=== PATIENT | female | born 1985 | race Caucasian/White ===

== ENCOUNTER 2018-02-06 19:06 | Emergency (ER) | payer MEDICAID ==
[~2018-02-06 19:06] MED LIST: AMOX500T PO; DICY1TAB26 PO; KCL10C PO; LOMO PO; LORTA10 PO; Z.0.NO CURRENT MEDS; ZOFR4TAB3 SL
[2018-02-06] MEDS ORDERED: SILVER NITR/POTASSIUM NITRATE APPLICATORS TOPICAL STA (19:56)
--- NOTE | 2018-02-06 20:05 | PD ---
HPI Chief Complaint vaginal bleeding Date Seen: Feb 06, 2018 Time Seen: 19:59 Travel History International Travel<30 Days: No Contact w/Intl Traveler<30Days: No Known Affected Area: No History of Present Illness HPI 32-year-old at 16 weeks gestation comes in complaining of bright red vaginal bleeding for approximately 1 hour. Patient denies abdominal pain, contractions, or pelvic pain. During this she has had a chronic hypertension and was placed on labetalol 100 mg twice daily. She also acquired HPV several years ago and had a colposcopy 2 weeks ago with directed biopsies that caused her to bleed for almost a week. Patient denies coitus but she has been placing MetroGel intravaginally every night for the past 4 nights due to bacterial vaginosis Weeks Gestation: 16 Para: 4 : 6 Miscarriage: 1 History Past Medical History Narrative Medical Chronic hypertension diagnosis HPV with colposcopy this Obstetric History Obstetric History Spontaneous vaginal delivery 4, 3 deliveries full-term, one delivery at 34 weeks Past Surgical History Surgical History: No Previous Surgery Family History Family History: Negative Social History Alcohol Use: No Tobacco Use: No Substance Abuse: No Allergies-Medications (Allergen,Severity, Reaction): Coded Allergies: ibuprofen (Unverified Adverse Reaction, Mild, 07/07/17) PT HAS KIDNEY DISEASE Uncoded Allergies: COUGH MEDS (Allergy, Severe, 08/24/03) Home Meds Active Scripts Diphenoxylate/Atropine (Lomotil) 1 Tab Tab, 1 TAB PO QID for DIARRHEA, #12 TAB 1 TAB, 5 TIMES A DAY NEEDED WITH EACH EPISODE OF DIARRHEA. DO NOT EXCEED 5 TABLETS/DAY. Prov:Tree Hull MD 01/05/15 Dicyclomine Hcl (Bentyl) 20 Mg Tab, 20 MG PO Q8 for PAIN, #21 TAB Prov:Tree Hull MD 01/05/15 Ondansetron (Zofran ODT) 4 Mg Tab, 4 MG SL Q6H Y for NAUSEA, #6 TAB FOR NAUSEA/VOMITING Prov:Tree Hull MD 01/05/15 Potassium Chloride (KCl 10 Meq Cap) 10 Meq Capcr, 10 MEQ PO DAILY, #5 CAP Prov:Tree Hull MD 01/05/15 Hydrocodone/Acetaminophen 10 mg/325 mg (Hydrocodone/Acetaminophen 10 mg/325 mg) 10 Mg/325 Mg Tab, 0.5-1 TAB PO Q6 for pain, #20 Prov:MANAV MILLER M.D. 08/06/13 Amoxicillin (Amoxicillin) 500 Mg Cap, 1 TAB PO TID for 10 Days Prov:MANAV MILLER M.D. 08/06/13 Reported Medications Miscellaneous (No Current Meds) Misc 08/05/13 Review of Systems Except as stated in HPI: all other systems reviewed are Neg Physical Exam Narrative GENERAL: Well-nourished, well-developed patient. SKIN: Warm and dry. HEAD: Normocephalic and atraumatic. EYES: No scleral icterus. No injection or drainage. ENT: No nasal drainage noted. Mucous membranes pink. Airway patent. NECK: Supple, trachea midline. No JVD. CARDIOVASCULAR: Regular rate and rhythm without murmurs, gallops, or rubs. RESPIRATORY: Breath sounds equal bilaterally. No accessory muscle use. ABDOMEN/GI: Abdomen soft, non-tender, bowel sounds present, no rebound, no guarding Gravid to [-16] weeks size Fundal Height: [-] GENITOURINARY: External Genitalia: intact and normal in appearance Previous cervical biopsy site noted at 12:00 with active bleeding. No bleeding per cervix, clumpy discharge which resembles blood mixed with MetroGel removed from vagina. Monsel solution and silver nitrate was placed on cervical biopsy site with good hemostasis and no further bleeding Cervix: [-] Closed Dilatation: [-] Effacement: [-] Station: [-] Presentation: [-] Membranes: [intact or ruptured] Uterine Contractions: [-] FHT's: By Doppler 145 Category: [-] Baseline: [-] Reactive: [-] Variability: [-] Decels: [-] EXTREMITIES: No cyanosis or edema. BACK: Nontender without obvious deformity. No CVA tenderness. NEUROLOGICAL: Awake and alert. Motor and sensory grossly within normal limits. Five out of 5 muscle strength in all muscle groups. Normal speech. Data Data Vital Signs Reviewed: Yes MDM Medical Record Reviewed: Yes Narrative Course / MDM at 16 weeks gestation with bright red vaginal bleeding during due to trauma at the site of her previous cervical biopsy performed 2 and half weeks ago. Trauma most likely due to placement of MetroGel Plan Hemostasis was achieved using topical preparations Patient will decrease her activities for the next week, nothing per vagina for the next 2 weeks Patient has appointment on Thursday which she will keep and obtain her providers recommendations at that time Diagnosis Diagnosis: Primary Impression: 16 weeks gestation of Additional Impressions: Vaginal bleeding during , antepartum HPV (human papilloma virus) infection Cervical dysplasia affecting in second trimester Chronic hypertension in obstetric context in second trimester Disposition: 01 DISCHARGE HOME Sarah Santiago MD Feb 06, 2018 20:05
== END 2018-02-06 20:40 | disposition home or self-care (01) ==
LOC: HOBED 19:06
DX: O46.92 Antepartum hemorrhage, unspecified, second trimester (principal); O98.312 Other infections with a predominantly sexual mode of transmission complicating pregnancy, second trimester; A63.0 Anogenital (venereal) warts; O99.89 Other specified diseases and conditions complicating pregnancy, childbirth and the puerperium; N87.9 Dysplasia of cervix uteri, unspecified; O16.2 Unspecified maternal hypertension, second trimester; Z3A.16 16 weeks gestation of pregnancy; Z88.6 Allergy status to analgesic agent
CPT/HCPCS: 99283

== ENCOUNTER → 2018-02-17 | Outpatient (CLI) | payer MEDICAID ==
[~2018-02-17] MED LIST changes: +LABE100T2 PO; +PREN1CHW7 PO
== END ==
LOC: HPND 11:47
PROVIDERS: ATTEND Obstetrics & Gynecology
DX: O28.5 Abnormal chromosomal and genetic finding on antenatal screening of mother (principal); O34.32 Maternal care for cervical incompetence, second trimester; R87.810 Cervical high risk human papillomavirus (HPV) DNA test positive; R87.613 High grade squamous intraepithelial lesion on cytologic smear of cervix (HGSIL)
CPT/HCPCS: 76805; 76817

== ENCOUNTER → 2018-02-23 | Outpatient (CLI) | payer MEDICAID ==
[~2018-02-23] MED LIST changes: +NIFE30TA8 PO
--- NOTE | 2018-02-24 13:18 | EKG ---
Date Performed: 02/23/2018 Time Performed: 13:34:42 PTAGE: 32 years EKG: Sinus rhythm NORMAL ECG PREVIOUS TRACING : 08/05/2013 21.50 DOCTOR: Tylor Cano Interpretating Date/Time 02/24/2018 13:17:05
== END ==
LOC: CPRE 13:08
PROVIDERS: ATTEND Obstetrics & Gynecology
DX: Z01.810 Encounter for preprocedural cardiovascular examination (principal); R87.613 High grade squamous intraepithelial lesion on cytologic smear of cervix (HGSIL)
CPT/HCPCS: 93005

== ENCOUNTER 2018-02-26 06:33 | Observation (INO) | payer MEDICAID ==
--- NOTE | 2018-02-23 14:14 | MH ---
cc: Marivel Kenyon MD DATE OF ADMISSION: 02/26/2018 SCHEDULED PROCEDURE: Dominguez cerclage and cold knife cone biopsy at 19-1/2 weeks estimated gestational age. 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 Secondary diagnosis of IgA nephropathy with preconceptual hypertension. HISTORY OF PRESENT CONDITION: The patient is a single white female, 5, para 4-0-0-4, with LMP questionably in September, who came to us on 01/04 at 12 weeks. Her booking Pap smear showed a high-grade squamous intraepithelial lesion. Cervical biopsy was done, which confirmed MIRELA 3 involving endocervical glands. She was made aware of this at 15 weeks and given the option of termination, early delivery in the early third trimester or observation. We also discussed the possibility of a Dominguez cerclage placed, the cone performed or the cerclage tied off, although this is not well documented in the literature as an option. The patient discussed this over time with her significant other and she also was evaluated by perinatology who felt that this was the procedure of choice. Specifically, she saw Dr. Yusuf on 02/17, and he agreed that she should have a cone biopsy with a cerclage in place to tie immediately afterward. I have appraised her that this is not a common procedure, that there is a very significant raised risk of loss with contractions and bleeding requiring removal of the cerclage. There is also an increased risk of labor and delivery when the is a viable, which it is not right now. This may not impact her IgA nephropathy and her hypertension, but these are independent risk factors for her , including obesity, GERD. She voices understanding of these issues and desires to proceed. Her previous pregnancies were delivered from 2007 through [address] Beckford and Olga at [facility]. She states she has been told she has abnormal Pap smears and that at her last visit with Dr. Espinoza, he told her it was time to get her uterus out, but she did not specifically know why or follow up. Attempts to obtain these Pap smears from Dr. Espinoza's office had not been successful, but we are continuing to request them. She has had a kidney biopsy in 2000. She delivered all her babies vaginally at term, except for her first one, which was PROM at 35 weeks. She is AB negative. Her hemoglobin was 11.7. She is immune to Tamazight measles and chickenpox. Her serology has been negative. TSH was 1.5. Drug screen was negative. Hepatitis was negative. Initial quad screen suggest an increased risk in Down syndrome, but this was incorrectly calculated and a recalculation with correct dates gave a normal number. PHYSICAL EXAMINATION: GENERAL: She is an obese, white female in no acute distress. VITAL SIGNS: Her weight is 226. Her blood pressure is 150/80 on labetalol 100 in the morning. LUNGS: Clear to auscultation and percussion. HEART: Rate and rhythm are regular. ABDOMEN: Obese with the fundus at the umbilicus. Perineum is estrogenized. Vault is mildly elevated. Cervix is multiparous and digitally feels to have significant length and closed. Uterus is consistent with dates. EXTREMITIES: Showed minimal edema, some varicosities. LABORATORY DATA: She has +4 protein at this time. A 24-hour urine was done a month ago, per her statement, but I have not obtained the results and we will repeat it this week. Ultrasound in the office today shows a cervical length of 3. 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 Opportunity is (1) to expectantly and do a cone biopsy after delivery, (2) do a termination of the and do a cold knife cone now, (3) do a cold knife cone and keep a cerclage in place to try and protect the now. All these have been described in detail and she wants to have a Dominguez cerclage placed without being tied, the cone biopsy done, tie off the Dominguez cerclage and follow up from there. She signed consents and has agreed to Thursday morning at 8:30. She will stay overnight for 23 hours. Marivel Kenyon MD PPC/SB , 01:31 PM , 02:13 PM
[~2018-02-26] VITALS: Ht 165.1 cm; Wt 101.9 kg
[~2018-02-26 06:33] MED LIST changes: -AMOX500T PO; -DICY1TAB26 PO; -KCL10C PO; -LOMO PO; -LORTA10 PO; -NIFE30TA8 PO; -Z.0.NO CURRENT MEDS; -ZOFR4TAB3 SL
[2018-02-26] MEDS: LACTATED RINGER'S 1000 ML IV PRN ×2 (07:15→11:00)
[2018-02-26] MEDS ORDERED: METOPROLOL TARTRATE 25 MG TAB PO PRN (07:30)
[2018-02-26] MEDS ORDERED: POVIDONE IODINE 5% (ANTISEPSIS KIT) 4 APPLICATIONS EACH NARE PRN (07:30)
[2018-02-26] MEDS ORDERED: SODIUM CHLORID 0.9% 500 ML IV PRN (07:30)
[2018-02-26] MEDS ORDERED: CHLORHEXIDINE GLUCONATE 2 % 1 PACK (2 CLOTHS) TOPICAL PRN (07:30)
[2018-02-26 07:41] LABS: AUTOMATED NEUTROPHIL # 6.3 TH/MM3 (1.8-7.7); BASOPHIL % 0.2 % (0.0-2.0); EOSINOPHIL # 0.1 TH/MM3 (0-0.4); HEMATOCRIT 33.5 % (35.0-46.0); HEMOGLOBIN 11.5 GM/DL (11.6-15.3); LYMPH % 17.3 % (9.0-44.0); LYMPHOCYTE # 1.5 TH/MM3 (1.0-4.8); MEAN CELL VOLUME 87.1 FL (80.0-100.0); MEAN CORPUSCULAR HEMOGLOBIN 29.8 PG (27.0-34.0); MEAN CORPUSCULAR HGB CONC 34.2 % (32.0-36.0); MEAN PLATELET VOLUME 6.8 FL (7.0-11.0); MONO % 5.9 % (0.0-8.0); MONOCYTE # 0.5 TH/MM3 (0-0.9); NEUT % 75.6 % (16.0-70.0); PLATELET COUNT 327 TH/MM3 (150-450); RED BLOOD COUNT 3.85 MIL/MM3 (4.00-5.30); RED CELL DISTRIBUTION WIDTH 14.1 % (11.6-17.2); WHITE BLOOD COUNT 8.4 TH/MM3 (4.0-11.0)
[2018-02-26 08:06] LABS: ALBUMIN 2.6 GM/DL (3.4-5.0); ALT (GPT) 20 U/L (10-53); AST (GOT) 19 U/L (15-37); BLOOD UREA NITROGEN 7 MG/DL (7-18); CALCIUM 8.6 MG/DL (8.5-10.1); CHLORIDE 106 MEQ/L (98-107); GLOMERULAR FILTRATION RATE 117 ML/MIN (>89); GLUCOSE,RANDOM 87 MG/DL (74-106); SODIUM (NA) 140 MEQ/L (136-145)
[2018-02-26 08:09] LABS: ALKALINE PHOSPHATASE 82 U/L (45-117); TOTAL BILIRUBIN ADULT 0.4 MG/DL (0.2-1.0); TOTAL PROTEIN 6.9 GM/DL (6.4-8.2)
[2018-02-26] MEDS ORDERED: BUPIVACAINE PF 0.75% DEX-WATER INJ 2 ML AMP ONE (08:31)
[2018-02-26] MEDS ORDERED: OXYTOCIN 10 UNIT/ML AMP ONE (08:37)
[2018-02-26] MEDS ORDERED: ESTROGENS CONJUGATED VAG CREA 15 APPL/30 GM TUBE ONE (08:37)
[2018-02-26 08:44] LABS: BILIRUBIN, URINE NEG (NEG); BLOOD, URINE NEG (NEG); GLUCOSE,URINE NEG (NEG); KETONE, URINE NEG (NEG); MUCUS URINE FEW /lpf (OCC); NITRITE,URINE NEG (NEG); SQUAMOUS EPITHELIAL CELL URINE 4 /hpf (0-5); URINE COLOR LIGHT-YELLOW (YELLW/STRAW); URINE LEUKOCYTE ESTERASE NEG (NEG)
[2018-02-26] MEDS ORDERED: MICROFIBRILLAR COLLAGEN HEMOSTAT 1 GM PKT ONE (09:56)
[2018-02-26 10:24] VITALS: TEMP 98.1
[2018-02-26] MEDS ORDERED: DO NOT ADM ANY ANTICOAGULANT DRUGS PRN (10:24)
--- NOTE | 2018-02-26 10:36 | HHI.DCPOC ---
Discharge Care Plan Report Symptoms to Your Doctor -Temperature above 100.5 degrees -Redness, of incision or excessive or foul smelling drainage -Unusual pain or calf pain -Increased vaginal bleeding -Painful or difficulty urinating -Feelings of extreme sadness or anxiety after 2 weeks Goals to Promote Your Health * To prevent worsening of your condition and complications * To maintain your health at the optimal level Directions to Meet Your Goals Take your medications as prescribed Follow your dietary instruction Follow activity as directed Ensure plenty of rest for recovery Drink fluids for hydration Keep your appointments as scheduled Take your immunizations and boosters as scheduled If your symptoms worsen call your PCP, if no PCP go to Urgent Care Center or Emergency Room Smoking is Dangerous to Your Health. Avoid second hand smoke Call the 24-hour crisis hotline for domestic abuse at Marivel Kenyon MD Feb 26, 2018 10:36
--- NOTE | 2018-02-26 10:39 | PD.OP ---
Operative Report Date of Surgery: Feb 26, 2018 Preoperative Diagnosis: CIS of cervix with glandular involvement 19 week IUP Postoperative Diagnosis: same Procedure: Cerclage with prolene and knot at 1 oclock LEEP and top hat Anesthesia: spinal Surgeon: Marivel Kenyon Student Support Services Director(s): ARIAN MS3 Resident Surgeon: Operation and Findings: Marivel Ruiz MD Feb 26, 2018 10:39
[2018-02-26 10:45] VITALS: BP 119/61; PULSE 90; RESP 18; O2SAT 100
--- NOTE | 2018-02-26 11:02 | MP ---
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 SECONDARY DIAGNOSIS: 19+-week intrauterine . POSTOPERATIVE DIAGNOSES: 1. 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 2. 19+-week intrauterine . 3. Pathology pending. PROCEDURE PERFORMED: Dominguez cerclage placement using a Prolene suture and a combination of cold knife cone and LEEP obtaining a cone with a stitch at 12 and a top hat with orientation not clear. SURGEON: MD Kostas FUR TINTER: MS Magno3 FINDINGS: Examination under spinal analgesia revealed a soft, but fairly long cervix. The lesion that has been confirmed both with cytology and histology in the office was not grossly visualized, but known to be on the transformation zone and entering into the endocervical canal. After stay sutures and traction sutures at 12 and 6, the cone biopsy was obtained. We started out with a knife, but bleeding suggested that we convert to using a small LEEP which was used to get the entirety of the cervical os in one pass with a stitch at 12, and then a very small narrow top hat with orientation unclear. Using cautery, Avitene and the traction sutures as hemostasis, only 50 mL to 75 mL were lost. The cerclage was placed with Prolene from 2-10, 10-8, 8-4 and 4-2, tied off gently with a long knot and long tails at 1 o'clock on the cervix. She had no discomfort during the procedure under her spinal and tolerated it well. heart tones were heard both before and after and she went to the recovery room stable. DESCRIPTION OF PROCEDURE: The patient was identified as Annette Yoon. In holding with her Ulises naik, we discussed that this is not a common procedure to do a cone biopsy and a cerclage at the same time. We have reviewed that she has a 20% risk of loss from this procedure due to uncontrollable contractions, infection or spontaneous rupture of membranes. This case had been discussed prior with both Gynecologic Oncology and Perinatology. She and her confirmed the desire to proceed. She was taken to the operating room where she was administered 2 grams of Ancef. She was prepped and draped in the usual sterile fashion in the dorsal lithotomy position. A timeout was performed with all in attendance. The cervix was stabilized with a single suture at 12 o'clock and then an additional suture at 6, both used to hold gentle traction and then at 3 o'clock and 9 o'clock a stay suture was placed to hopefully decrease blood flow to the cervix from the inferior branches of the uterine artery. At this point, a Dominguez cerclage was placed, but left untied. Then a cold knife cone was initiated from 3 o'clock to 9 o'clock posteriorly. This created a significant bleeding situation with lack of visualization, so this was converted to a LEEP where the cone was obtained in a single pass, incorporating the cervical os intact and then later labeled at 12. A top hat was then performed and then using the cautery ball the area was rendered hemostatic with that, tying off the sutures at 12 and 6, Avitene pressure and time. It was apparent that during the cone biopsy the cerclage was cut and therefore it was again replaced at 2-10, 10-8, 8-4, and 4-2 with the knot at 1 o'clock. Bleeding at this point was truly minimal. Estrogen cream was placed in the vagina. She was placed in dorsal supine position, awoken, and taken to the recovering room in stable condition and she underwent heart tones, again which were good. MD WILLIAM Esquivel/SB , 10:32 AM , 11:01 AM
[2018-02-26] MEDS ORDERED: MORPHINE SULFATE 8 MG/ML INJ IM PRN (11:30)
[2018-02-26] MEDS ORDERED: oxyCODONE/ACETAMINOPHEN 5 MG/325 MG TAB PO PRN ×2 (11:30)
[2018-02-26] MEDS ORDERED: ONDANSETRON HCL 4 MG/2 ML VIAL IV PUSH PRN (11:30)
[2018-02-26] MEDS ORDERED: LACTATED RINGER'S 1000 ML INJ 1,000 ML IV ONE (12:23)
[2018-02-26] MEDS ORDERED: ePHEDrine/NS 25 MG/5 ML SYRINGE IV ONE (12:23)
[2018-02-26] MEDS ORDERED: ceFAZolin INJ 1,000 MG VIAL IV ONE (12:23)
[2018-02-26] MEDS ORDERED: PHENYLEPH/NS 1000 MCG/10 ML SYR IV ONE (12:23)
[2018-02-27] MEDS ORDERED: NIFEdipine 30 MG SUSTAINED RELEASE TAB PO SCH (09:00)
[2018-02-27] MEDS ORDERED: NIFE30TA8 PO (11:39)
--- NOTE | 2018-02-27 11:53 | PD.OB.ANTE ---
Subjective Diagnosis: (1) H/O LEEP Interval History doing well, no pain, no bleeding Objective Vital Signs Intake & Output 02/27/18 02/27/18 07:00 19:00 Intake Total 2 ml Balance 2 ml Blood Product IV Normal Saline Flush 2 ml Physical Exam GENERAL: Well-nourished, well-developed patient. CARDIOVASCULAR: Regular rate and rhythm without murmurs, gallops, or rubs. RESPIRATORY: Breath sounds equal bilaterally. No accessory muscle use. ABDOMEN/GI: Abdomen soft, non-tender. Fundus: 20, nontender, soft GENITOURINARY: External Genitalia: defer FHT's: + fht EXTREMITIES: No cyanosis or edema, non-tender, without signs of DVT. Assessment and Plan Problem List: (1) H/O LEEP ICD Codes: Z98.890 - Other specified postprocedural states Assessment and Plan 19 wk s/p leep and cerclage for cis- doing very well Discussed need for pelvic rest no heavy lifting, modified bedrest until seen in office w Dr. Kenyon. Strict pain bleeding precautions. Luz Gamble MD Feb 27, 2018 11:53
== END 2018-02-27 12:24 | disposition home or self-care (01) ==
LOC: HSDC 06:33 → H2EA 11:03
PROVIDERS: ADMIT Obstetrics & Gynecology; ATTEND Obstetrics & Gynecology
DX: D06.9 Carcinoma in situ of cervix, unspecified (principal); O16.2 Unspecified maternal hypertension, second trimester; O26.832 Pregnancy related renal disease, second trimester; O99.212 Obesity complicating pregnancy, second trimester; O99.612 Diseases of the digestive system complicating pregnancy, second trimester; K21.9 Gastro-esophageal reflux disease without esophagitis; Z3A.19 19 weeks gestation of pregnancy; Z68.37 Body mass index [BMI] 37.0-37.9, adult
CPT/HCPCS: 00948; 57522; 59320; 80053; 81001; 85025; 86850; 86900; 86901; 88307; 90384; G0378; J0690; J2370; J7120; 88305; J2590; J2790

== ENCOUNTER → 2018-03-10 | Outpatient (CLI) | payer MEDICAID ==
[~2018-03-10] MED LIST changes: -LABE100T2 PO; +NIFE30TA8 PO
== END ==
LOC: HPND 12:42
PROVIDERS: ATTEND Obstetrics & Gynecology
DX: O34.32 Maternal care for cervical incompetence, second trimester (principal); O10.012 Pre-existing essential hypertension complicating pregnancy, second trimester
CPT/HCPCS: 76815; 76817

== ENCOUNTER → 2018-03-25 | Outpatient (CLI) | payer MEDICAID | LOC: HPND 08:57 | PROVIDERS: ATTEND Obstetrics & Gynecology | DX: O34.32 Maternal care for cervical incompetence, second trimester (principal); O10.012 Pre-existing essential hypertension complicating pregnancy, second trimester | CPT/HCPCS: 76816; 76817 ==

== ENCOUNTER 2018-04-09 11:56 | Emergency (ER) | END 2018-04-09 13:13 | disposition home or self-care (01) | DX: O26.892 Other specified pregnancy related conditions, second trimester (principal); R10.31 Right lower quadrant pain; Z3A.25 25 weeks gestation of pregnancy ==

== ENCOUNTER 2018-07-15 12:26 | Inpatient (IN) ==
[2018-07-15] MEDS ORDERED: Sodium Chlor 0.9% Inj 500 ML IV.SIG PRN (14:30)
[2018-07-15] MEDS ORDERED: Naloxone Inj 0.4 MG/ML Vial IV.PUSH PRN (14:30)
[2018-07-15] MEDS ORDERED: fentaNYL Citrate Inj 100 MCG/2 ML Ampul IV.PUSH PRN ×2 (14:30)
[2018-07-15] MEDS ORDERED: Sod Chloride 0.9% Inj 1,000 ML IV.CONT PRN (14:30)
[2018-07-15] MEDS ORDERED: Citric Acid/Sodium Citrate Liq 30 ML UDC PO SCH (14:30)
[2018-07-15] MEDS ORDERED: Oxytocin 30 Units/500ml Premix 30 UNITS/500 ML BAG IV.SIG ONE (14:30)
--- NOTE | 2018-07-15 14:31 | MH ---
cc: Marivel Kenyon MD DATE OF ADMISSION: 07/15/2018 INDICATION FOR INDUCTION: A 39 and 2/7-week with macrosomia and an inducible cervix, status post cerclage removal. HISTORY OF PRESENT CONDITION: The patient is a pleasant, but complicated 32-year-old white female, 5, para 4-0-0-4 with LMP 09/23/2017 and EDC 06/30/2018, currently at 39-2/7 weeks. She had a history of abnormal Pap smears that were not addressed, either through miscommunication or noncompliance and I do believe it was the former, and not the latter. When she had her first Pap smear with us she had a high-grade lesion, favor carcinoma and the decision was made to get her to the mid second trimester, do a cone biopsy and cerclage. This was after much discussion with perinatology, medical oncology and gynecologic oncology. She underwent a cold knife cone biopsy and cerclage at 20 weeks and had an unremarkable recovery and has done well since. Her cerclage was removed in the office at 36 weeks and she has not yet gone into labor. The cervix is 2 cm, 50%, but it does appear to be scarred and may need some stretching or clipping of this scar band. Her pelvis has been proven to 8 pounds 2 ounces. Estimated weight of this baby is over 9 pounds. surveillance has been reassuring. Repeat Pap smear done at 34 weeks' gestation with atypical cells. Other than these medical situations, she has had a previous IgA nephropathy and hypertension and other than some occasional elevations in blood pressure, she has been normotensive with last blood pressure in our office 126/80. Her weight is 240. She does consistently have 1+ protein, but no more. She does not have significant pedal edema or nondependent edema. Her only medications at this time are Campbell vitamins and Zantac 150 b.i.d. Her 4 other babies were born full-term vaginally with no issues by Dr. Beckford and Dr. Espinoza. FAMILY HISTORY: Noncontributory. She does not smoke, drink or use illicit drugs. Her blood type is Rh negative. She did receive RhoGAM. She is group B strep positive. She will need penicillin. She is not penicillin allergic. PHYSICAL EXAMINATION: GENERAL: She has no thyroid enlargement. LUNGS: Clear. HEART: Regular. PELVIC: Fundus is term, in cephalic. Estimated weight is 9 pounds. Cervix 2+ cm, 50%, -2, but there is a tight band. Baby is ballottable. EXTREMITIES: Show 1+ edema. No elevation of deep tendon reflexes. IMPRESSION: Term infant, macrosomic and multiparous, who has had a cerclage after cone biopsy with some scarring. PLAN: Proceed with induction, rupture of membranes after epidural and breaking of the cervical scar band if needed. Risks, benefits, expectations, and alternatives have been discussed with the patient and she is scheduled for tomorrow. Marivel Kenyon MD PPC/ct/ll , 05:19 PM , 05:31 PM
[2018-07-15] MEDS ORDERED: Oxytocin 30 Units/500ml Premix 30 UNITS/500 ML BAG IV.SIG PRN (14:32)
[2018-07-15 14:57] LABS: Baso % (Auto) 0.3 % (0.0-2.0); Eos # (Auto) 0.1 th/mm3 (0.0-0.4); Eos % (Auto) 0.5 % (0.0-4.0); Hematocrit 32.2 % (35.0-46.0); Hemoglobin 10.5 gm/dL (11.6-15.3); Lymph # (Auto) 1.4 th/mm3 (1.0-4.8); Lymph % (Auto) 12.6 % (9.0-44.0); Mean Corpuscular HGB Conc 32.6 % (32.0-36.0); Mean Corpuscular Hemoglobin 28.1 pg (27.0-34.0); Mean Corpuscular Volume 86.3 fL (80.0-100.0); Mean Platelet Volume 7.1 fL (7.0-11.0); Mono # (Auto) 0.5 th/mm3 (0.0-0.9); Mono % (Auto) 4.8 % (0.0-8.0); Neut # (Auto) 9.1 th/mm3 (1.8-7.7); Neut % (Auto) 81.8 % (16.0-70.0); Platelet Count 386 th/mm3 (150-450); Red Blood Count 3.73 mil/mm3 (4.00-5.30); Red Cell Distribution Width 15.4 % (11.6-17.2); White Blood Count 11.2 th/mm3 (4.0-11.0)
[2018-07-15 15:01] LABS: Amphetamine Urine With Conf Neg (Neg); Benzodiazepine Urine With Conf Neg (Neg)
[2018-07-15 15:05] LABS: Bacteria,Urine Moderate /hpf; Bilirubin,Urine Negative (Negative); Clarity,Urine Hazy (Clear); Color,Urine Yellow (Yellw/Straw); Glucose,Urine (UA) Negative (Negative); Leukocyte Esterase,Urine Negative (Negative); Mucus,Urine Few /lpf (Occasional); Nitrite,Urine Negative (Negative); Specific Gravity,Urine 1.015 (1.002-1.035); Squamous Epithelial Cell,Urine 12 /hpf (0-5)
[2018-07-15] MEDS ORDERED: Penicillin G Potassium Inj 5,000,000 UNIT in Sodium Chloride 0.9% Inj 100 ML IV.SIG ONE (16:00)
[2018-07-15] MEDS: Penicillin G Potassium Inj 2,500,000 UNIT in Sodium Chlor 0.9% Inj 100 ML IV.SIG SCH ×2 (20:00→23:30)
[2018-07-15] MEDS ORDERED: fentaNYL 2MCG-Bupiv 0.125% Epi 150 ML EPIDURAL ONE (23:39)
[2018-07-16] MEDS ORDERED: fentaNYL Citrate Inj 100 MCG/2 ML Ampul EPIDURAL ONE (00:46)
[2018-07-16] MEDS ORDERED: fentaNYL 2MCG-Bupiv 0.125% Epi 150 ML EPIDURAL PRN (00:46)
[2018-07-16] MEDS: Penicillin G Potassium Inj 2,500,000 UNIT in Sodium Chlor 0.9% Inj 100 ML IV.SIG SCH (03:38)
[2018-07-16] MEDS ORDERED: Witch Hazel 50%/Glyderin 12.5% 40 Pad Jar RECTAL PRN (04:39)
[2018-07-16] MEDS ORDERED: Bisacodyl 10 MG Supp RECTAL PRN (04:39)
[2018-07-16] MEDS ORDERED: Zolpidem Tartrate 5 MG Tablet PO PRN (04:39)
[2018-07-16] MEDS ORDERED: Naloxone Inj 0.4 MG/ML Vial IV.PUSH PRN (04:39)
[2018-07-16] MEDS ORDERED: Oxytocin 30 Units/500ml Premix 30 UNITS/500 ML BAG IV.CONT PRN (04:39)
[2018-07-16] MEDS ORDERED: Benzocaine 20% Top Spray 60 ML Can TOPICAL PRN (04:39)
--- NOTE | 2018-07-16 04:47 | P.OBLABOR ---
Subjective Interval history: Delayed entry: At 6 pm ambulating and not feeling mild contractions Objective Vital Signs: Vital Signs - 8 hr 07/15/18 20:46 07/15/18 21:00 07/15/18 21:09 Temperature 98.4 F Pulse Rate 99 H 94 H Respiratory Rate 18 Blood Pressure 130/63 132/76 07/15/18 22:01 07/15/18 23:01 07/15/18 23:15 Temperature 98.0 F Pulse Rate 89 75 94 H Respiratory Rate 18 Blood Pressure 124/80 104/57 L 127/72 07/16/18 00:52 07/16/18 00:55 07/16/18 01:05 Temperature 98.0 F Pulse Rate 92 H 89 88 Respiratory Rate 18 Blood Pressure 128/78 126/66 07/16/18 01:10 07/16/18 01:25 07/16/18 01:50 Temperature Pulse Rate 89 89 90 Respiratory Rate Blood Pressure 120/66 122/66 109/57 L 07/16/18 02:01 07/16/18 03:25 07/16/18 03:31 Temperature Pulse Rate 93 H 93 H 87 Respiratory Rate Blood Pressure 115/66 125/54 L 120/60 07/16/18 03:36 07/16/18 04:30 07/16/18 04:31 Temperature 98.2 F Pulse Rate 91 H 98 H Respiratory Rate 18 18 Blood Pressure 130/79 Objective: Strip category 1 90/3/-1 arom clear tight band from cone/cerclage Weeks Gestation: 39 Patient Started Active Labor: Yes Active Labor Start Date: 07/15/18 Medical Induction of Labor: Yes Medical Induction Start Date: 07/15/18 Artificial Rupture of Membrane: Yes Artificial ROM Date: 07/15/18 Artificial ROM Time: 18:00 Assessment and Plan - Diagnosis (1) Third trimester Code(s): Z34.93 - Encounter for supervision of normal , unspecified, third trimester Status: Acute - Plan anticipate
--- NOTE | 2018-07-16 04:49 | P.OBDELI ---
Weeks Gestation: 39 Patient Started Active Labor: Yes Medical Induction of Labor: Yes Artificial Rupture of Membrane: Yes Anesthesia: Epidural Episiotomy: none Vaginal Delivery: Normal Presentation: Occiput anterior Nuchal Cord: x1 Delayed Cord Clamping (45 sec): Yes Placenta: Spontaneous delivery, Intact, 3 vessel cord Laceration: None Estimated blood loss (mL): 200 Infant: Male (male 4 and 9 apgars weight pending)
--- NOTE | 2018-07-16 07:43 | P.PNOB ---
Subjective Post day: 0 Interval history: Patient sleeping upon arrival to the room, her partner states she has no complaints. Was recently delivered at 4 AM Objective Vital Signs/I&O: Vital Signs 07/15/18 13:28 07/15/18 14:34 07/15/18 14:46 Temperature 98.0 F Pulse Rate 95 H 94 H Respiratory Rate 16 Blood Pressure 143/83 H 135/77 136/85 07/15/18 15:01 07/15/18 15:16 07/15/18 16:46 Temperature Pulse Rate 92 H 88 102 H Respiratory Rate Blood Pressure 125/74 116/77 123/68 07/15/18 17:46 07/15/18 18:16 07/15/18 19:06 Temperature 98.1 F Pulse Rate 97 H 92 H 93 H Respiratory Rate Blood Pressure 132/85 134/78 151/94 H 07/15/18 19:15 07/15/18 20:01 07/15/18 20:16 Temperature Pulse Rate 99 H 98 H Respiratory Rate 18 Blood Pressure 112/51 L 139/78 07/15/18 20:46 07/15/18 21:00 07/15/18 21:09 Temperature 98.4 F Pulse Rate 99 H 94 H Respiratory Rate 18 Blood Pressure 130/63 132/76 07/15/18 22:01 07/15/18 23:01 07/15/18 23:15 Temperature 98.0 F Pulse Rate 89 75 94 H Respiratory Rate 18 Blood Pressure 124/80 104/57 L 127/72 07/16/18 00:52 07/16/18 00:55 07/16/18 01:05 Temperature 98.0 F Pulse Rate 92 H 89 88 Respiratory Rate 18 Blood Pressure 128/78 126/66 07/16/18 01:10 07/16/18 01:25 07/16/18 01:50 Temperature Pulse Rate 89 89 90 Respiratory Rate Blood Pressure 120/66 122/66 109/57 L 07/16/18 02:01 07/16/18 03:25 07/16/18 03:31 Temperature Pulse Rate 93 H 93 H 87 Respiratory Rate Blood Pressure 115/66 125/54 L 120/60 07/16/18 03:36 07/16/18 03:40 07/16/18 04:01 Temperature 98.2 F Pulse Rate 91 H 96 H 101 H Respiratory Rate 18 Blood Pressure 140/103 H 08/24/18 04:30 07/16/18 04:31 07/16/18 04:51 Temperature 98.4 F Pulse Rate 98 H 109 H Respiratory Rate 18 16 Blood Pressure 130/79 98/59 L 07/16/18 05:07 07/16/18 05:22 07/16/18 05:23 Temperature Pulse Rate 96 H 97 H 122 H Respiratory Rate 18 18 Blood Pressure 135/65 99/71 L 07/16/18 05:58 07/16/18 06:28 Temperature 98.4 F Pulse Rate 88 74 Respiratory Rate 18 18 Blood Pressure 122/61 105/59 L Intake & Output 07/15/18 07/16/18 07/16/18 18:59 06:59 18:59 Intake Total 1200 / 1200 Balance 1200 / 1200 Weight 92.533 kg Intake: IV 1200 / 1200 LR 1000 mL Inj 1,000 ML @ 125 1000 / 1000 mls/hr IV.CONT .Q8H [facility] Rx#: [id number] Pfizerpen-G Inj 2,500,000 UNIT 200 / 200 In NS Inj 100 ML @ 200 mls/hr IV.SIG Q4H [facility] Rx#:[id number] Other: Weight On Admission 108.862 kg Result Diagrams: 07/15/18 14:00 Objective Remarks: GENERAL: Well-nourished, well-developed patient. CARDIOVASCULAR: Regular rate and rhythm without murmurs, gallops, or rubs. RESPIRATORY: Breath sounds equal bilaterally. No accessory muscle use. ABDOMEN/GI: Abdomen soft, non-tender. Fundus: Firm, non-tender at umbilicus. GENITOURINARY: Light to moderate bleeding. EXTREMITIES: No cyanosis or edema, non-tender, without signs of DVT. Medications and IVs: Active Medications Acetaminophen (Tylenol) 650 mg PO Q4H PRN PRN Reason: PAIN SCALE 1 TO 2 Al Hydroxide/Mg Hydroxide (Milk Of Magnesia Liq) 30 ml PO Q12H PRN PRN Reason: Mild Constipation Benzocaine (Americaine 20% Top [place]) 1 spray TOPICAL Q4H PRN PRN Reason: For Perineum Discomfort Bisacodyl (Dulcolax Supp) 10 mg RECTAL DAILY PRN PRN Reason: SEVERE CONSITIPATION Diphtheria/Pertussis/Tetanus Vacc (Boostrix Vaccine Inj) 0.5 ml IM .ONCE ONE Stop: 07/16/18 16:01 Ferrous Sulfate (Ferosul) 325 mg PO DAILY [facility] Oxytocin (Pitocin 30 Units/Ns 500 Ml Premix) 30 units in 500 mls @ 100 mls/hr IV.CONT UNSCH PRN PRN Reason: Heavy bleeding Ibuprofen (Motrin) 800 mg PO Q8H PRN PRN Reason: For Cramping Lactulose (Lactulose Liq) 30 ml PO DAILY PRN PRN Reason: SEVERE CONSITIPATION Measles/Mumps/Rubella Vaccine Live (M-M-R Ii Vaccine Inj) 0.5 ml SQ .ONCE ONE Stop: 07/16/18 16:01 Miscellaneous Information (Misc Information) 1 each OTHER UNSCH PRN PRN Reason: SEE LABEL COMMENTS Stop: 07/17/18 00:46 Miscellaneous Information (Misc Information) 1 each OTHER UNSCH PRN PRN Reason: SEE LABEL COMMENTS Stop: 07/17/18 00:46 Naloxone HCl (Narcan Inj) 0.1 mg IV.PUSH Q2M PRN PRN Reason: for opiate reversal Ondansetron HCl (Zofran Odt) 4 mg PO Q6H PRN PRN Reason: NAUSEA OR VOMITING Vit/Calcium/Iron/Folic Ac (Stuartnatal Plus 3) 1 tab PO DAILY [facility] Rho Immune Globulin (Winrho Inj) 1,500 unit IM ONCE ONE Stop: 07/16/18 16:01 Senna/Docusate Sodium (Lilian-Colace) 1 tab PO BID [facility] Sennosides (Senokot) 17.2 mg PO Q12H PRN PRN Reason: Moderate Constipation Sodium Chloride (Ns Flush) 2 ml IV.FLUSH BID [facility] Sodium Chloride (Ns Flush) 2 ml IV.FLUSH PRN PRN PRN Reason: FLUSH AFTER USING IV ACCESS Varicella Virus Vaccine Live (Varivax Vaccine Inj) 0.5 ml SQ .ONCE ONE Stop: 07/16/18 16:01 Witch Angy/Glycerin (Tucks Pads) 1 applicatio RECTAL QID PRN PRN Reason: HEMORRHOIDS Zolpidem Tartrate (Ambien) 5 mg PO HS PRN PRN Reason: SLEEP Assessment and Plan - Diagnosis (1) Third trimester Code(s): Z34.93 - Encounter for supervision of normal , unspecified, third trimester Status: Acute - Plan 33-year-old status post at 39 weeks and 3 days 1. Postoperative day #0: Afebrile, vital signs stable, limited encounter with patient today she was sleeping and recent delivery, with a space with nursing later to see if patient is to be seen today if not I will see her tomorrow. 2. IGA nephropathy / HTN: BP controlled off medications as far as i know, will continue to rend BPs. Will discuss PREC precautions. and FU 1 week for BP check. 3. h/o CKC in preg with MIRELA 3 / pos margins: defer management to Dr. Brennan
--- NOTE | 2018-07-16 08:05 | P.PNOB ---
Subjective Post day: 0 Interval history: feeling very well nursing ambulating well four hours post with intact perineum Objective Vital Signs/I&O: Vital Signs 07/15/18 13:28 07/15/18 14:34 07/15/18 14:46 Temperature 98.0 F Pulse Rate 95 H 94 H Respiratory Rate 16 Blood Pressure 143/83 H 135/77 136/85 07/15/18 15:01 07/15/18 15:16 07/15/18 16:46 Temperature Pulse Rate 92 H 88 102 H Respiratory Rate Blood Pressure 125/74 116/77 123/68 07/15/18 17:46 07/15/18 18:16 07/15/18 19:06 Temperature 98.1 F Pulse Rate 97 H 92 H 93 H Respiratory Rate Blood Pressure 132/85 134/78 151/94 H 07/15/18 19:15 07/15/18 20:01 07/15/18 20:16 Temperature Pulse Rate 99 H 98 H Respiratory Rate 18 Blood Pressure 112/51 L 139/78 07/15/18 20:46 07/15/18 21:00 07/15/18 21:09 Temperature 98.4 F Pulse Rate 99 H 94 H Respiratory Rate 18 Blood Pressure 130/63 132/76 07/15/18 22:01 07/15/18 23:01 07/15/18 23:15 Temperature 98.0 F Pulse Rate 89 75 94 H Respiratory Rate 18 Blood Pressure 124/80 104/57 L 127/72 07/16/18 00:52 07/16/18 00:55 07/16/18 01:05 Temperature 98.0 F Pulse Rate 92 H 89 88 Respiratory Rate 18 Blood Pressure 128/78 126/66 07/16/18 01:10 07/16/18 01:25 07/16/18 01:50 Temperature Pulse Rate 89 89 90 Respiratory Rate Blood Pressure 120/66 122/66 109/57 L 07/16/18 02:01 07/16/18 03:25 07/16/18 03:31 Temperature Pulse Rate 93 H 93 H 87 Respiratory Rate Blood Pressure 115/66 125/54 L 120/60 07/16/18 03:36 07/16/18 03:40 07/16/18 04:01 Temperature 98.2 F Pulse Rate 91 H 96 H 101 H Respiratory Rate 18 Blood Pressure 140/103 H 07/16/18 04:30 07/16/18 04:31 07/16/18 04:51 Temperature 98.4 F Pulse Rate 98 H 109 H Respiratory Rate 18 16 Blood Pressure 130/79 98/59 L 07/16/18 05:07 07/16/18 05:22 07/16/18 05:23 Temperature Pulse Rate 96 H 97 H 122 H Respiratory Rate 18 18 Blood Pressure 135/65 99/71 L 07/16/18 05:58 07/16/18 06:28 Temperature 98.4 F Pulse Rate 88 74 Respiratory Rate 18 18 Blood Pressure 122/61 105/59 L Intake & Output 07/15/18 07/16/18 07/16/18 18:59 06:59 18:59 Intake Total 1200 / 1200 Balance 1200 / 1200 Weight 92.533 kg Intake: IV 1200 / 1200 LR 1000 mL Inj 1,000 ML @ 125 1000 / 1000 mls/hr IV.CONT .Q8H ON LICENSE OF [facility] Rx#: [id number] Pfizerpen-G Inj 2,500,000 UNIT 200 / 200 In NS Inj 100 ML @ 200 mls/hr IV.SIG Q4H ON LICENSE OF [facility] Rx#:[id number] Other: Weight On Admission 108.862 kg Result Diagrams: 07/15/18 14:00 Objective Remarks: GENERAL: Well-nourished, well-developed patient. CARDIOVASCULAR: Regular rate and rhythm without murmurs, gallops, or rubs. RESPIRATORY: Breath sounds equal bilaterally. No accessory muscle use. ABDOMEN/GI: Abdomen soft, non-tender. Fundus: Firm, non-tender at umbilicus. GENITOURINARY: Light to moderate bleeding. EXTREMITIES: No cyanosis or edema, non-tender, without signs of DVT. Medications and IVs: Active Medications Acetaminophen (Tylenol) 650 mg PO Q4H PRN PRN Reason: PAIN SCALE 1 TO 2 Al Hydroxide/Mg Hydroxide (Milk Of Magnesia Liq) 30 ml PO Q12H PRN PRN Reason: Mild Constipation Benzocaine (Americaine 20% Top [place]) 1 spray TOPICAL Q4H PRN PRN Reason: For Perineum Discomfort Bisacodyl (Dulcolax Supp) 10 mg RECTAL DAILY PRN PRN Reason: SEVERE CONSITIPATION Diphtheria/Pertussis/Tetanus Vacc (Boostrix Vaccine Inj) 0.5 ml IM .ONCE ONE Stop: 07/16/18 16:01 Ferrous Sulfate (Ferosul) 325 mg PO DAILY [facility] Oxytocin (Pitocin 30 Units/Ns 500 Ml Premix) 30 units in 500 mls @ 100 mls/hr IV.CONT UNSCH PRN PRN Reason: Heavy bleeding Ibuprofen (Motrin) 800 mg PO Q8H PRN PRN Reason: For Cramping Lactulose (Lactulose Liq) 30 ml PO DAILY PRN PRN Reason: SEVERE CONSITIPATION Measles/Mumps/Rubella Vaccine Live (M-M-R Ii Vaccine Inj) 0.5 ml SQ .ONCE ONE Stop: 07/16/18 16:01 Miscellaneous Information (Misc Information) 1 each OTHER UNSCH PRN PRN Reason: SEE LABEL COMMENTS Stop: 07/17/18 00:46 Miscellaneous Information (Misc Information) 1 each OTHER UNSCH PRN PRN Reason: SEE LABEL COMMENTS Stop: 07/17/18 00:46 Naloxone HCl (Narcan Inj) 0.1 mg IV.PUSH Q2M PRN PRN Reason: for opiate reversal Ondansetron HCl (Zofran Odt) 4 mg PO Q6H PRN PRN Reason: NAUSEA OR VOMITING Vit/Calcium/Iron/Folic Ac (Stuartnatal Plus 3) 1 tab PO DAILY ON LICENSE OF [facility] Rho Immune Globulin (Winrho Inj) 1,500 unit IM ONCE ONE Stop: 07/16/18 16:01 Senna/Docusate Sodium (Lilian-Colace) 1 tab PO BID ON LICENSE OF [facility] Sennosides (Senokot) 17.2 mg PO Q12H PRN PRN Reason: Moderate Constipation Sodium Chloride (Ns Flush) 2 ml IV.FLUSH BID [facility] Sodium Chloride (Ns Flush) 2 ml IV.FLUSH PRN PRN PRN Reason: FLUSH AFTER USING IV ACCESS Varicella Virus Vaccine Live (Varivax Vaccine Inj) 0.5 ml SQ .ONCE ONE Stop: 07/16/18 16:01 Witch Angy/Glycerin (Tucks Pads) 1 applicatio RECTAL QID PRN PRN Reason: HEMORRHOIDS Zolpidem Tartrate (Ambien) 5 mg PO HS PRN PRN Reason: SLEEP Assessment and Plan - Diagnosis (1) Third trimester Code(s): Z34.93 - Encounter for supervision of normal , unspecified, third trimester Status: Acute - Plan 33-year-old status post at 39 weeks and 3 days 1. Postoperative day #0: Afebrile, vital signs stable, limited encounter with patient today she was sleeping and recent delivery, with a space with nursing later to see if patient is to be seen today if not I will see her tomorrow. 2. IGA nephropathy / HTN: BP controlled off medications as far as i know, will continue to rend BPs. Will discuss PREC precautions. and FU 1 week for BP check. 3. h/o CKC in preg with MIRELA 3 / pos margins: defer management to Dr. Brennan had ASCUS pap at 34 weeks will repeat at 6 weeks likely discharge PPD 1 post circumcision
[2018-07-16] MEDS: Senna/Docusate Sodium 8.6/50 MG Tablet PO SCH ×2 (08:38→20:14)
[2018-07-16] MEDS: Prenatal Vit/Ca/Iron/Folic Acid Tablet PO SCH (08:38)
[2018-07-16] MEDS: Ferrous Sulfate 325 MG Tablet PO SCH (08:38)
[2018-07-16] MEDS ORDERED: Diphtheria/Tetanus/Pertussis Vaccine Inj 0.5 ML Syringe IM ONE (16:00)
[2018-07-16] MEDS ORDERED: Rho Immune Globulin Inj 1,500 UNIT/1.3 ML Vial IM ONE (16:00)
[2018-07-16] MEDS ORDERED: Varicella Vaccine Live 1350 UNITS/0.5 ML Vial SQ ONE (16:00)
[2018-07-16] MEDS ORDERED: Measles/Mumps/Rubella Vaccine Inj 0.5 ML Vial SQ ONE (16:00)
[2018-07-16] MEDS: Acetaminophen 325 MG Tablet PO PRN (20:12)
[2018-07-17] MEDS: Acetaminophen 325 MG Tablet PO PRN ×3 (05:13→21:39)
--- NOTE | 2018-07-17 07:33 | P.PNOB ---
Subjective Post day: 1 Interval history: Doing well, pain controlled, ambulating without difficulty, voiding spontaneously, vaginal bleeding less than menses. Objective Vital Signs/I&O: Vital Signs 07/16/18 20:35 Temperature 97.9 F Pulse Rate 91 H Respiratory Rate 18 Blood Pressure 123/71 Result Diagrams: 07/15/18 14:00 Objective Remarks: GENERAL: Well-nourished, well-developed patient. CARDIOVASCULAR: Regular rate and rhythm without murmurs, gallops, or rubs. RESPIRATORY: Breath sounds equal bilaterally. No accessory muscle use. ABDOMEN/GI: Abdomen soft, non-tender. Fundus: Firm, non-tender at umbilicus. GENITOURINARY: Light to moderate bleeding. EXTREMITIES: No cyanosis or edema, non-tender, without signs of DVT. Medications and IVs: Active Medications Acetaminophen (Tylenol) 650 mg PO Q4H PRN PRN Reason: PAIN SCALE 1 TO 2 Last Admin: 07/17/18 05:13 Dose: 650 mg Al Hydroxide/Mg Hydroxide (Milk Of Magnesia Liq) 30 ml PO Q12H PRN PRN Reason: Mild Constipation Benzocaine (Americaine 20% Top [place]) 1 spray TOPICAL Q4H PRN PRN Reason: For Perineum Discomfort Last Admin: 07/16/18 20:12 Dose: 1 spray Bisacodyl (Dulcolax Supp) 10 mg RECTAL DAILY PRN PRN Reason: SEVERE CONSITIPATION Ferrous Sulfate (Ferosul) 325 mg PO DAILY [facility] Last Admin: 07/16/18 08:38 Dose: 325 mg Oxytocin (Pitocin 30 Units/Ns 500 Ml Premix) 30 units in 500 mls @ 100 mls/hr IV.CONT UNSCH PRN PRN Reason: Heavy bleeding Ibuprofen (Motrin) 800 mg PO Q8H PRN PRN Reason: For Cramping Lactulose (Lactulose Liq) 30 ml PO DAILY PRN PRN Reason: SEVERE CONSITIPATION Naloxone HCl (Narcan Inj) 0.1 mg IV.PUSH Q2M PRN PRN Reason: for opiate reversal Ondansetron HCl (Zofran Odt) 4 mg PO Q6H PRN PRN Reason: NAUSEA OR VOMITING Vit/Calcium/Iron/Folic Ac (Stuartnatal Plus 3) 1 tab PO DAILY [facility] Last Admin: 07/16/18 08:38 Dose: 1 tab Senna/Docusate Sodium (Lilian-Colace) 1 tab PO BID [facility] Last Admin: 07/16/18 20:14 Dose: Not Given Sennosides (Senokot) 17.2 mg PO Q12H PRN PRN Reason: Moderate Constipation Sodium Chloride (Ns Flush) 2 ml IV.FLUSH BID [facility] Last Admin: 07/16/18 20:14 Dose: 2 ml Sodium Chloride (Ns Flush) 2 ml IV.FLUSH PRN PRN PRN Reason: FLUSH AFTER USING IV ACCESS Witch Angy/Glycerin (Tucks Pads) 1 applicatio RECTAL QID PRN PRN Reason: HEMORRHOIDS Last Admin: 07/16/18 20:13 Dose: 1 applicatio Zolpidem Tartrate (Ambien) 5 mg PO HS PRN PRN Reason: SLEEP Assessment and Plan - Diagnosis (1) Third trimester Code(s): Z34.93 - Encounter for supervision of normal , unspecified, third trimester Status: Acute - Plan 33-year-old status post at 39 weeks and 3 days 1. day #1: Afebrile, vital signs stable, meeting milestones, anticipate discharge home tomorrow. -Male , desires circumcision. 2. IGA nephropathy / HTN: Patient states off blood pressure medication since her first trimester, blood pressures normotensive during her admission, continue to trend , discussed preeclampsia precautions. Recommend in 1 week follow-up in the office for blood pressure check. 3. h/o CKC in preg with MIRELA 3 / pos margins: defer management to Dr. Brennan
--- NOTE | 2018-07-17 07:42 | P.DS ---
Date of admission: 07/15/18 12:26 Primary care physician: Erin Primary Care Physician Brief History from admission: 33-year-old 005 and presented as an induction of labor underwent spontaneous vaginal delivery at 39 weeks and 3 days was discharged on day #2. DS: Diagnosis - Discharge Diagnosis (1) Third trimester Status: Acute DS: Summary Hospital Course: See brief history - Time Spent with Patient Total time spent providing and/or coordinating discharge services: Less than 30 minutes Exam Vital signs: Vital Signs 07/16/18 20:35 Temperature 97.9 F Pulse Rate 91 H Respiratory Rate 18 Blood Pressure 123/71 Results Procedures completed during hospitalization: Labs on day of discharge: Labs from last 24 hours 07/16/18 11:05 Blood Type AB Negative Ab Screen Tube Method Negative Blood Bank Comment Preliminary micro results at discharge 07/15/18 14:00 Urine Culture - Preliminary Clean Catch Urine Immature growth - reincubate Discharge Plan - Discharge Disposition Patient Disposition: 01 Discharge Home - Discharge Condition Condition: Good - Discharge Order Discharge Orders: Discharge Order (Routine); Ordered 07/18/18 Ordered By: Marivel Kenyon - Discharge Details Anticipated Discharge Date: 07/18/18 - Physicians Team Primary Care Provider: Primary Erin Gregory Attending Provider: Marivel Kenyon - Rxs /Orders / Referrals /Forms Prescriptions: Continue Gummy 3 tab See Label Instructions .ROUTE .COMPLEX Referrals: Primary Care Erin Kim [Primary Care Provider] - See Instructions - Post Discharge Care Plan Care Plan Goals: Congratulations on your new baby! We want your recovery to be cherry and trouble free. Please Report the Following Symptoms to Your Doctor: -Temperature above 100.5 degrees -Unusual pain or calf pain -Increased vaginal bleeding -Painful or difficulty urinating -Feelings of extreme sadness or anxiety Goals to Promote Your Health * To prevent worsening of your condition and complications * To maintain your health at the optimal level Directions to Meet Your Goals Take your medications as prescribed Follow your dietary instruction Follow activity as directed Ensure plenty of rest for recovery Drink fluids for hydration Keep your appointments as scheduled Take your immunizations and boosters as scheduled If your symptoms worsen call your OB Physician, or go to an Urgent Care Center or Emergency Room Smoking is Dangerous to your health. Avoid second hand smoke Call the 24-hour crisis hotline for domestic abuse at
[2018-07-17] MEDS: Ferrous Sulfate 325 MG Tablet PO SCH (09:37)
[2018-07-17] MEDS: Prenatal Vit/Ca/Iron/Folic Acid Tablet PO SCH (09:37)
[2018-07-17] MEDS: Senna/Docusate Sodium 8.6/50 MG Tablet PO SCH ×2 (11:58→21:40)
--- NOTE | 2018-07-18 09:06 | P.PNOB ---
Subjective Post day: 2 Interval history: No change from yesterday, ready for discharge home Objective Vital Signs/I&O: Vital Signs 07/17/18 20:00 Temperature 97.8 F Pulse Rate 83 Respiratory Rate 18 Blood Pressure 137/71 Intake & Output 07/17/18 07/18/18 07/18/18 18:59 06:59 18:59 Intake Total 0 / 0 Balance 0 / 0 Intake: Intake (Blood Product) Amt 0 / 0 Rho(D) Immune Globulin Unit 0 / 0 [id number] Result Diagrams: 07/15/18 14:00 Objective Remarks: GENERAL: Well-nourished, well-developed patient. CARDIOVASCULAR: Regular rate and rhythm without murmurs, gallops, or rubs. RESPIRATORY: Breath sounds equal bilaterally. No accessory muscle use. ABDOMEN/GI: Abdomen soft, non-tender. Fundus: Firm, non-tender at umbilicus. GENITOURINARY: Light to moderate bleeding. EXTREMITIES: No cyanosis or edema, non-tender, without signs of DVT. Medications and IVs: Active Medications Acetaminophen (Tylenol) 650 mg PO Q4H PRN PRN Reason: PAIN SCALE 1 TO 2 Last Admin: 07/17/18 21:39 Dose: 650 mg Al Hydroxide/Mg Hydroxide (Milk Of Magnesia Liq) 30 ml PO Q12H PRN PRN Reason: Mild Constipation Benzocaine (Americaine 20% Top [place]) 1 spray TOPICAL Q4H PRN PRN Reason: For Perineum Discomfort Last Admin: 07/16/18 20:12 Dose: 1 spray Bisacodyl (Dulcolax Supp) 10 mg RECTAL DAILY PRN PRN Reason: SEVERE CONSITIPATION Ferrous Sulfate (Ferosul) 325 mg PO DAILY [facility] Last Admin: 07/17/18 09:37 Dose: 325 mg Oxytocin (Pitocin 30 Units/Ns 500 Ml Premix) 30 units in 500 mls @ 100 mls/hr IV.CONT UNSCH PRN PRN Reason: Heavy bleeding Ibuprofen (Motrin) 800 mg PO Q8H PRN PRN Reason: For Cramping Last Admin: 07/17/18 21:39 Dose: 800 mg Lactulose (Lactulose Liq) 30 ml PO DAILY PRN PRN Reason: SEVERE CONSITIPATION Naloxone HCl (Narcan Inj) 0.1 mg IV.PUSH Q2M PRN PRN Reason: for opiate reversal Ondansetron HCl (Zofran Odt) 4 mg PO Q6H PRN PRN Reason: NAUSEA OR VOMITING Vit/Calcium/Iron/Folic Ac (Stuartnatal Plus 3) 1 tab PO DAILY [facility] Last Admin: 07/17/18 09:37 Dose: 1 tab Senna/Docusate Sodium (Lilian-Colace) 1 tab PO BID [facility] Last Admin: 07/17/18 21:40 Dose: Not Given Sennosides (Senokot) 17.2 mg PO Q12H PRN PRN Reason: Moderate Constipation Sodium Chloride (Ns Flush) 2 ml IV.FLUSH BID [facility] Last Admin: 07/17/18 19:37 Dose: Not Given Sodium Chloride (Ns Flush) 2 ml IV.FLUSH PRN PRN PRN Reason: FLUSH AFTER USING IV ACCESS Witch Angy/Glycerin (Tucks Pads) 1 applicatio RECTAL QID PRN PRN Reason: HEMORRHOIDS Last Admin: 07/16/18 20:13 Dose: 1 applicatio Zolpidem Tartrate (Ambien) 5 mg PO HS PRN PRN Reason: SLEEP Assessment and Plan - Diagnosis (1) Third trimester Code(s): Z34.93 - Encounter for supervision of normal , unspecified, third trimester Status: Acute - Plan 33-year-old status post at 39 weeks and 3 days 1. day #2: Afebrile, vital signs stable, meeting milestones, discharge home today. -Male , status post circumcision today. 2. IGA nephropathy / HTN: Patient states off blood pressure medication since her first trimester, blood pressures normotensive during her admission, continue to trend , discussed preeclampsia precautions. Recommend in 1 week follow-up in the office for blood pressure check. Patient typically is on lisinopril recommended to be outside of , but never has insurance to take this. 3. h/o CKC in preg with MIRELA 3 / pos margins: defer management to Dr. Brennan
[2018-07-18] MEDS: Prenatal Vit/Ca/Iron/Folic Acid Tablet PO SCH (14:53)
[2018-07-18] MEDS: Senna/Docusate Sodium 8.6/50 MG Tablet PO SCH (14:53)
[2018-07-18] MEDS: Ferrous Sulfate 325 MG Tablet PO SCH (14:53)
== END 2018-07-18 13:38 | disposition home or self-care (01) ==
LOC: H2E 12:26 → H1EA 07-16 06:40
PROVIDERS: ADMIT Obstetrics & Gynecology; ATTEND Obstetrics & Gynecology